=== PATIENT | male | born 1950 | race Caucasian/White ===

== ENCOUNTER 2017-01-25 10:52 | Inpatient (IN) | payer MEDICARE, BC ==
[2017-01-14 16:12] LABS: BASOPHILS 0.5 %; BASOPHILS ABSOLUTE 0.03 10/3/uL (0.0-0.16); EOSINOPHILS 5.2 %; EOSINOPHILS ABSOLUTE 0.33 10/3/uL (0.0-0.53); IMMATURE GRANULOCYTES 0.6 %; IMMATURE GRANULOCYTES ABSOLUTE 0.04 10/3/uL (0.0-0.11); LYMPHOCYTES 39.7 %; LYMPHOCYTES ABSOLUTE 2.52 10/3/uL (0.67-4.30); MEAN CORPUS HGB CONC 32.4 g/dL (32.0-36.0); MEAN CORPUSCULAR HEMOGLOB 28.8 pg (26.0-34.0); MEAN CORPUSCULAR VOLUME 88.9 fL (80-100); MEAN PLATELET VOLUME 9.5 fL (9.2-13.0); MONOCYTES 7.2 %; MONOCYTES ABSOLUTE 0.46 10/3/uL (0.21-1.20); NEUTROPHILS 46.8 %; NEUTROPHILS ABSOLUTE 2.97 10/3/uL (2.02-8.40); PLATELET COUNT 288 10/3/uL (150-400); RBC DISTRIBUTION WIDTH 14.7 % (12.0-16.0); WHITE BLOOD CELLS 6.4 10/3/uL (4.5-10.5)
[2017-01-14 16:13] LABS: HEMATOCRIT 33.6 % (40.0-51.0); HEMOGLOBIN 10.9 g/dL (13.6-17.8); MANUAL DIFF NO %; RED CELL COUNT 3.78 10/6/uL (4.7-6.1)
[2017-01-14 16:17] LABS: BUN (BLOOD UREA NITROGEN) 13 MG/DL (6-23); CALCIUM, SERUM 9.1 MG/DL (8.5-10.4); CHLORIDE, SERUM 108 MMOL/L (96-112); CO2 (CARBON DIOXIDE) 31 MMOL/L (24-34); CREATININE 0.89 MG/DL (0.70-1.30); GFR AFRICAN AMERICAN 103 ML/MIN (>=60); GFR NON AFRICAN AMERICAN 88 ML/MIN (>=60); GLUCOSE, SERUM 94 MG/DL (60-99); POTASSIUM, SERUM 4.3 MMOL/L (3.5-5.3); SODIUM, SERUM 141 MMOL/L (135-148)
--- NOTE | ~2017-01-25 | OP ---
Record Of Operation [facility] [address] [place]. [address] NAME: RIC WESLEY : 48 STATUS : ADM IN PAT#: [id number] AGE: 66 ADM/REG DATE : 01/25/17 MR#: [id number] REPORT SERV DATE: 01/25/17 DICTATED BY: RIC SORIANO DATE: 01/25/17 REPORT STATUS : Draft TRANSCRIBED BY: MODL DATE: 01/25/17 DATE OF PROCEDURE: 01/25/2017 PREOPERATIVE DIAGNOSES: 1. Presence of right subclavian port. 2. Ileostomy. PROCEDURE: 1. Port-A-Cath removal. 2. Closure of ileostomy with resection anastomosis. ANESTHESIA: General. ESTIMATED BLOOD LOSS: Less than 50 mL. INDICATION: Mr. 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 The risks including bleeding, infection, damage to organs, anesthesia, recovery of bowel function among others were discussed with him and he agreed to proceed. DESCRIPTION OF PROCEDURE: The patient was taken to the operating room and placed in supine position. General anesthesia was induced. The abdomen and right subclavian area were prepped and draped and the right subclavian area was first addressed by making an incision over the port, which was removed, and a pursestring was placed around the exit site and then the skin was closed with subcutaneous and subcuticular 3-0 Vicryl. Steri-Strips and Telfa and Tegaderm dressing was applied. I then isolated that area and address the stoma, which was excised in a transverse ellipse and dissection was carried down to the intraperitoneal cavity. The mesentery was clamped, divided, and ligated, and then Franklin clamps were placed across the bowel in order to excise the stoma and then antimesenteric enterotomies were utilized to place a BEATA stapler, which was fired, and then the staple lines were offset and an another BEATA stapler was fired to complete the anastomosis. The staple lines were turned in as was the crotch with 3-0 silk stitch. There was excellent blood supply, no tension, and patent lumen. The area was irrigated and instruments were passed off and gloves changed and then the anastomotic area was placed into the abdominal cavity and the abdominal wall was closed using 0 PDS on the posterior and anterior rectus and a single stitch of 3-0 Vicryl was placed in the skin and then it was otherwise packed open. The counts were correct. The patient tolerated the procedure well. RAMILA/SAGAR Sandra Soriano M.D. / [id number] Record Of [address] [address] NAME: RIC WESLEY : 48 STATUS : ADM IN [facility]#: [id number] AGE: 66 ADM/REG DATE : 01/25/17 MR#: [id number] REPORT SERV DATE: 01/25/17 DICTATED BY: RIC SORIANO DATE: 01/25/17 REPORT STATUS : Draft TRANSCRIBED BY: SAGAR DATE: 01/25/17 CC: Sandra Soriano M.D.
[~2017-01-25 10:52] MED LIST: ACET500CAP PO; ALKA-SELTZER O1 EACH PO; AMBISOME IV; BIOTIN5 MG PO; CLARIT10 PO; CLOBETASOL0.051 EX; DESONATE0.05 % EX; DESONATE0.05 % TOP; GLUCOSAMINEPO PO; IMOD PO; MAGNESIUM PO; MIRALAXPKT PO; MULTIPLE VIT PO; NEUR300 PO; NORCO1 TA1 PO; NORMAL SALINE IV; NUTRA/PRO PO; PCET PO; POT GLUCONAT550 M1 PO; SPORANOX PO; VIT B12 PO; VITAMIN B-121000 MC1 PO; ZANTAC150 MG PO; ZINC PO; [UNRECOGNIZED DRUG - OTHER] T
[2017-01-26 06:41] LABS: BASOPHILS 0 %; EOSINOPHILS 0 %; HEMATOCRIT 34.2 % (40.0-51.0); HEMOGLOBIN 11.4 g/dL (13.6-17.8); IMMATURE GRANULOCYTES 0.5 %; IMMATURE GRANULOCYTES ABSOLUTE 0.06 10/3/uL (0.0-0.11); LYMPHOCYTES 30.9 %; LYMPHOCYTES ABSOLUTE 3.64 10/3/uL (0.67-4.30); MEAN CORPUS HGB CONC 33.3 g/dL (32.0-36.0); MEAN CORPUSCULAR HEMOGLOB 29.2 pg (26.0-34.0); MEAN CORPUSCULAR VOLUME 87.5 fL (80-100); MEAN PLATELET VOLUME 9.4 fL (9.2-13.0); MONOCYTES 4.7 %; MONOCYTES ABSOLUTE 0.56 10/3/uL (0.21-1.20); NEUTROPHILS 63.9 %; NEUTROPHILS ABSOLUTE 7.53 10/3/uL (2.02-8.40); PLATELET COUNT 280 10/3/uL (150-400); RBC DISTRIBUTION WIDTH 14.4 % (12.0-16.0); RED CELL COUNT 3.91 10/6/uL (4.7-6.1)
[2017-01-26 06:42] LABS: MANUAL DIFF NO %; WHITE BLOOD CELLS 11.8 10/3/uL (4.5-10.5)
[2017-01-26 06:46] LABS: BUN (BLOOD UREA NITROGEN) 12 MG/DL (6-23); CALCIUM, SERUM 9.2 MG/DL (8.5-10.4); CHLORIDE, SERUM 108 MMOL/L (96-112); CREATININE 0.79 MG/DL (0.70-1.30); GFR AFRICAN AMERICAN 108 ML/MIN (>=60); GFR NON AFRICAN AMERICAN 93 ML/MIN (>=60); POTASSIUM, SERUM 4.3 MMOL/L (3.5-5.3); SODIUM, SERUM 141 MMOL/L (135-148)
[2017-01-26 06:50] LABS: CO2 (CARBON DIOXIDE) 25 MMOL/L (24-34); GLUCOSE, SERUM 140 MG/DL (60-99)
[2017-01-27] MEDS ORDERED: PCET PO (15:09)
== END 2017-01-27 16:22 | disposition home or self-care (01) | DRG 331 ==
LOC: SDC/OF 10:52 → PACU 15:17 → 5SO 18:29
PROVIDERS: Colon & Rectal Surgery
PROC: 0DBB0ZZ Excision of Ileum, Open Approach (ICD-10-PCS; principal; 2017-01-25 12:45)
PROC: 0JPT0XZ Removal of Tunneled Vascular Access Device from Trunk Subcutaneous Tissue and Fascia, Open Approach (ICD-10-PCS; 2017-01-25 12:45)
DX: Z43.2 Encounter for attention to ileostomy (principal); G62.9 Polyneuropathy, unspecified; Z85.048 Personal history of other malignant neoplasm of rectum, rectosigmoid junction, and anus; T45.1X5A Adverse effect of antineoplastic and immunosuppressive drugs, initial encounter; Z90.49 Acquired absence of other specified parts of digestive tract; Z98.890 Other specified postprocedural states; Z88.0 Allergy status to penicillin
CPT/HCPCS: 80048; 82150; 85025; 88300; 88304; 93005; A9270-GY; J0690; J2250; J2405; J2710; J2795; J3010